=== PATIENT | male | born 1960 | race Caucasian/White ===

== ENCOUNTER 2016-07-27 16:51 | Emergency (ER) | payer OTHER ==
[~2016-07-27] VITALS: Ht 188 cm; Wt 117.3 kg
[2016-07-27 16:57] VITALS: BP 178/111; PULSE 83; RESP 18; O2SAT 96
[2016-07-27] MEDS ORDERED: 0.9% Sodium Chloride 1,000 ML IV ONE (19:12)
[2016-07-27] MEDS ORDERED: Dexamethasone 10 mg/mL Inj IVPUSH ONE (19:15)
[2016-07-27] MEDS ORDERED: MetoCLOpramide 5 mg/mL 2 mL Inj IVPUSH ONE (19:15)
--- NOTE | 2016-07-27 19:17 | ED.REPORT ---
HPI-Headache Date of Service July 27, 2016 ED Provider: Ever Chandler PA-C Sean is a 56-year-old male with history of hypertension, hyperlipidemia, asthma , vertigo and [place] presents with a chief complaint of headache. Patient states he has had a headache for approximately 2 weeks. He locates his headache on the right hemisphere and rates it 7-8 out of 10. His headache is aggravated by reclining, is worse at night and prevents sleep. Has been associated with right -sided jaw pain for the last 2 days. Patient states that the headache began relatively suddenly when he walked into his laundry room and smelled the detergent. Denies nausea/vomiting, photophobia, fever, chills, malaise or other symptoms. denies one-sided watery eyes, runny nose, facial sweating. He was seen by his primary care provider who suspects cluster headache. Prescribed sumatriptan and. Patient has found 2 tablets a sumatriptan helpful for the headache but has run out. Patient admits a history of multiple concussions but denies history of headaches Nursing Notes Stated Complaint: HEADACHE Chief Complaint: Headache Nursing Notes Reviewed: Yes Allergies: Uncoded Allergies: BREATHANE (Allergy, Severe, Anaphylaxis, 07/27/16) Scheduled Penicillin V Potassium (Penicillin V Potassium) 250 Mg Tablet 250 MG PO QID Scheduled PRN Metoclopramide (Metoclopramide) 10 Mg Tablet 10 MG PO QID PRN PRN Headache Sumatriptan Succinate (Sumatriptan Succinate) 100 Mg Tablet 100 MG PO DIRECTED PRN PRN Headache Take one tablet by mouth when necessary for headache. You can take 1 more tablet one hour later if headache has not resolved. Do not exceed 2 tablets per 24 hours General Time Seen by MD: 18:53 Chief Complaint Headache Sudden in Onset?: Yes Past Medical History Past Medical History Notes: Hypertension, hyperlipidemia, asthma, [place], vertigo Review of Systems General: Denies fever, chills, malaise. HEENT: Admits headache, denies congestion, sore throat Respiratory: Denies dyspnea, cough, shortness of breath, wheezing. Cardiovascular: Denies chest pain, palpitations. Gastrointestinal: Denies vomiting, diarrhea, abdominal pain. Genitourinary: Denies frequency, urgency, dysuria, hematuria. Otherwise as noted in HPI. Physical Exam General: Well appearing, well developed, well nourished, no acute distress. Head: Atraumatic, normocephalic. No mastoid tenderness. Nontender over temples. Eyes: No scleral icterus or injection. No discharge. PERRL. Vision grossly intact. Ears: Pinna and tragus nontender with manipulation. External auditory canal patent, atraumatic and without discharge. Tympanic membrane norton, shiny and translucent without fluid, bulging, retraction or perforation. Hearing grossly intact. Nose: Symmetrical, nares patent without discharge. No frontal or maxillary sinus tenderness. Mouth/pharynx: Several absent teeth, decayed and tender to percussion in the left lower molars. No redness, swelling, discharge or fluctuance noted. Mucus membranes moist. Tonsils 2+ and symmetrical, uvula midline. Pharynx noninjected , no cobblestoning or discharge. Voice clear. Neck: Supple. Spontaneous range of motion. No tenderness or lymphadenopathy. Trachea midline. Respiratory: Regular rate and rhythm. Breath sounds present, clear to auscultation and equal bilaterally. No respiratory distress. No increased work of breathing, speaks in complete sentences. Cardiovascular: Regular rate and rhythm, without murmur, gallop or rub. No pedal edema. Skin: Warm and dry. Neurological: Normal gait, heel-to-toe walk, toe walk, heel walk, Romberg. Negative pronator drift. Cranial nerves: Vision grossly intact, PERRL, EOMI. Facial motion symmetrical, sensation to light touch over forehead, maxilla and mandible present and equal B /L. Voice clear and fluent, no drooling/pooling of saliva, uvula rises midline. Psychological: Alert and oriented. Speech appropriate, linear and logical. Behavior appropriate. Initial Vital Signs Vital Signs (First) Date Time Temp Pulse Resp B/P Pulse Ox O2 Delivery O2 Flow Rate FiO2 07/27/16 16:57 36.6 83 18 178/111 96 Room Air Initial VS: Vital signs abnormal (elevated blood pressure) Interpretation & Diagnostics PROCEDURE: CT BRAIN WITHOUT CONTRAST ([id number]) INDICATIONS: headache IMPRESSION: No acute intracranial process Lab Results Interpretation Result Diagram: 07/27/16194307/27/161943 Test 07/27/16 19:44 07/27/16 20:14 White Blood Count 10.7th/mm3 (3.8-10.1) Red Blood Count 5.10mil/mm3 (4.40-5.80) Hemoglobin 15.9g/dL (13.8-17.2) Hematocrit 45.4% (41.0-50.0) Mean Corpuscular Volume 89.0fL (81-100) Mean Corpuscular Hemoglobin 31.2pg (27.0-35.0) Mean Corpuscular Hemoglobin Concent 35.0% (32.0-37.0) Red Cell Distribution Width 12.7% (12.3-15.4) Platelet Count 292bil/L (150-400) Neutrophils (%) (Auto) 58.8% (40-74) Lymphocytes (%) (Auto) 28.4% (14-46) Monocytes (%) (Auto) 7.8% (4-12) Eosinophils (%) (Auto) 4.4% (0-5) Basophils (%) (Auto) 0.4% (0-3) Erythrocyte Sedimentation Rate 1mm/hr (0-30) Sodium Level 139mEq/L (134-144) Potassium Level 3.8mEq/L (3.5-5.2) Chloride Level 98mEq/L (97-108) Carbon Dioxide Level 26mmol/L (18-29) Blood Urea Nitrogen 14mg/dL (6-24) Creatinine 1.22mg/dL (0.76-1.27) Estimat Glomerular Filtration Rate 66mL/min (>59) Glucose Level 100mg/dL (60-99) Calcium Level 9.0mg/dL (8.5-10.1) C-Reactive Protein 0.1mg/dL (0.0-0.5) Hold Boyle Top Tube Received (Received) Re-Eval/Medical Decision Med Decision/Clinical Course Otherwise healthy 56-year-old male presents with a chief complaint of headache which began relatively suddenly 2 weeks ago. Headache is waxing and waning over that time, worse reclining and at night. Proventil sleep. Assessed by his primary care provider and prescribed sumatriptan which is helpful but he has run out. Denies history of headaches. Also complains of jaw pain which began about 2 days ago. Physical examination is benign with a normal neurological examination. Patient appears quite well. I do note tenderness to percussion in the left lower molar , with no redness, swelling, discharge or fluctuance noted. CBC and CMP are unremarkable, revealing only extremely slight leukocytosis at 10.7. CRP and ESR are normal. CT scan is normal. Initial hypertension noted at triage is significantly reduced after treatment. Responds well to treatment with ketorolac, dexamethasone, metoclopramide, 1 L normal saline. States pain reduced from 6/10 to 2/10. At this point I am reassured regarding intracranial bleeding, tumor, meningitis. I think this is likely to be a migraine headache. Discussed these findings with the patient, and discussed performing a lumbar puncture for maxim confidence. Lumbar puncture is declined, and I made clear that he is welcome to return any time to receive the test. Patient wishes to be discharged and has plans to be seen by his primary care provider early next week. Advised regarding analgesia and prescribed descriptions for metoclopramide, some triptan and penicillin to address a potentially infected tooth. Advised emergent return precautions and seeking out a dentist as soon as possible. Patient verbalized understanding of and consent to the plan Re-Evaluation/Progress : Time of Eval: 20:52 Re-Evaluation/Progress Note: Patient reports his headache pain is reduced from 6/10 to 2/10 Discharge & Departure Impression: Primary Impression: Headache Headache type: unspecified Headache chronicity pattern: acute headache Intractability: not intractable Qualified Code: R51 - Headache Additional Impression: Elevated blood pressure reading Disposition: Home Discharge Condition All VS Reviewed: Yes Condition: Stable Patient Instructions: Acute Headache (GEN) Additional Instructions: Evaluation for a headache in the emergency department included history, physical examination blood tests and CT scan all of which are reassuring that the headache is unlikely to be caused by an immediately dangerous conditions such as bleeding or bran, tumor or infection. You have declined to have a lumbar puncture performed which would be the most definitive test. Your free to return to emergency department at any time and have this test performed. If your headache returns I suggest taking 25 mg of Benadryl, 400 mg ibuprofen and 10 mg of Reglan. I will write a prescription for the Reglan as well as a prescription for the sumatriptan they have been using. Uses sumatriptan and if the other medications fail. I will also write a prescription for penicillin to address the potential infection in your tooth. Make an effort to contact dentists who accept your insurance and be seen as soon as possible. Follow-up with your primary care provider early next week to further assess your headache. Return to emergency department for any new or worsening symptoms including new or different headache, increasing pain, vomiting that does not respond to medication or stroke symptoms. I also note that your blood pressure was elevated during your visit to the emergency department. Please discuss this with your primary care provider. Referrals: Dustin Ivy DO (PCP) EDSupervising Provider for APC: Callum Perez DO copies to: Dustin Ivy Seth PA-C July 27, 2016 19:17
[2016-07-27 20:00] LABS: BASOPHILS % (AUTO) 0.4 % (0-3); EOSINOPHILS % (AUTO) 4.4 % (0-5); MONOCYTES % (AUTO) 7.8 % (4-12); Mean Corpuscular Hemoglobin 31.2 pg (27.0-35.0); NEUTROPHILS % (AUTO) 58.8 % (40-74); Platelet Count 292 bil/L (150-400)
[2016-07-27 20:12] VITALS: BP 163/90; PULSE 64; RESP 16; O2SAT 100
--- NOTE | 2016-07-27 20:40 | DRSVH ---
PROCEDURE: CT BRAIN WITHOUT CONTRAST ([id number]) INDICATIONS: headache TECHNIQUE: Noncontrast 4.5 mm thick angled axial sections acquired from the foramen magnum to the vertex, with c oronal reformats. COMPARISON: None. FINDINGS: Image quality: Excellent. CSF spaces: Basal cisterns are patent. No extra-axial fluid collections. Ventricles are normal in size and shape. Brain: No midline shift. No intracranial masses or hemorrhage. Hurd-white matter interface is norm al. Skull and face: Calvarium and visualized facial bones are intact, without suspicious lesions. Sinuses: Visualized sinuses and mastoids are clear. IMPRESSION: No acute intracranial process Dictated by: Vito Luna M.D. on 07/27/2016 at 20:37 Approved by: Vito Luna M.D. on 07/27/2016 at 20:38
[2016-07-27 21:14] VITALS: BP 150/84; PULSE 65; RESP 16; O2SAT 97
[2016-07-27] MEDS ORDERED: METO10TA3 PO (21:42)
[2016-07-27] MEDS ORDERED: SUMA100T2 PO (21:42)
[2016-07-27] MEDS ORDERED: PENI250T2 PO (21:42)
[2016-07-27 22:14] VITALS: BP 155/99; PULSE 80; RESP 16; O2SAT 97
== END 2016-07-27 22:15 | disposition home or self-care (01) ==
LOC: SED 16:51
DX: R51 Headache (principal); I10 Essential (primary) hypertension; E78.5 Hyperlipidemia, unspecified; I25.2 Old myocardial infarction; J45.909 Unspecified asthma, uncomplicated
CPT/HCPCS: 36415; 70450; 80048; 85025; 85651; 86140; 96361; 96374; 96375; 99285; J1100; J1885; J2765; J7030

== ENCOUNTER 2016-11-01 11:39 | Emergency (ER) | payer OTHER ==
[~2016-11-01] VITALS: Ht 190.5 cm; Wt 121.5 kg
[~2016-11-01 11:39] MED LIST: METO10TA3 PO; PENI250T2 PO; SUMA100T2 PO
[2016-11-01 11:55] VITALS: BP 171/104; PULSE 65; RESP 18; O2SAT 97
--- NOTE | 2016-11-01 12:00 | ED.REPORT ---
HPI-Extremity Problem Upper Date of Service Nov 01, 2016 ED Provider: Dr. Abdul Pt is a 56 year old male with a hx of chronic right shoulder pain presenting to the ED complaining of right shoulder pain recently worsened after doing activities such as gardening and building a shed. Associated symptoms include intermittent numbness and tingling all down his arm to the R pinky finger. Denies any heavy lifting, recent injury, SOB, fever, chills, headache, or vision changes. He has an appointment with orthopedic surgery in 3 days but states that he cannot wait until then due to the severity of the pain. He was last seen at for the pain on the 10/03/16 and diagnosed with a right rotator cuff injury. He did not have any x rays done. He initially injured himself at work in 2012, and had a labrum surgery reattaching the bicep in 2014. He has been taking Aspirin for the pain without relief. Pain is relieved by sitting and lying down and worse with movement of his shoulder. Nursing Notes Stated Complaint: RT EXTREME SHOULDER PAIN Chief Complaint: Extremity Trauma Nursing Notes Reviewed: Yes Allergies: Uncoded Allergies: BREATHANE (Allergy, Severe, Anaphylaxis, 07/27/16) Scheduled Penicillin V Potassium (Penicillin V Potassium) 250 Mg Tablet 250 MG PO QID Scheduled PRN Hydrocodone-Acetaminophen 5-325 mg (Hydrocodone-Acetaminophen 5-325 mg) 1 Each Tablet 1 TABLET PO Q4H PRN PRN For Pain Metoclopramide (Metoclopramide) 10 Mg Tablet 10 MG PO QID PRN PRN Headache Sumatriptan Succinate (Sumatriptan Succinate) 100 Mg Tablet 100 MG PO DIRECTED PRN PRN Headache Take one tablet by mouth when necessary for headache. You can take 1 more tablet one hour later if headache has not resolved. Do not exceed 2 tablets per 24 hours General Time Seen by MD: 11:59 Chief Complaint Shoulder injury right Hx Obtained From: Patient Arrived By: Walk-in Onset Occurred: Just prior to arrival Symptom Duration: Since onset Location: : Shoulder right Quality: Painful Severity: Current: Severe Severity: Maximum: Severe Recent Healthcare: No recent hospitalization, Recent doctor visit Similar Sx Previous: Yes Past Medical History Past Medical History Notes: Hypertension, hyperlipidemia, asthma, [place], vertigo Past Medical History Chronic right shoulder pain Past Surgical History Labrum surgery reattaching the bicep in 2014 Smoking History Unknown if Ever Smoker Social History Other Social History: Good social support, Ambulatory Status Independent Review of Systems Constitutional: Denies: Chills, Fever Musculoskeletal: Reports: Extremity pain, Joint pain Neurologic: Reports: Numbness, Denies: Headache, Vision change Complete sys rev & neg: except as marked. Respiratory: Denies: Shortness of breath Physical Exam Initial Vital Signs Vital Signs (First) Date Time Temp Pulse Resp B/P Pulse Ox O2 Delivery O2 Flow Rate FiO2 11/01/16 11:55 36.7 65 18 171/104 97 Room Air Initial VS: Reviewed General/Constitutional: Well-developed, Well-nourished Head / Eyes: Atraumatic, Normocephalic, PERRL ENT: Mucous membranes moist, Conjunctiva normal, No scleral icterus Neck: Supple, Non-tender, Full range of motion Respiratory: No respiratory distress Abdomen / GI: No distention Skin: Warm, Dry, No cyanosis Neurologic: Alert, Oriented, Nonfocal Psychiatric: Mood/affect normal, Behavior normal, Normal thought content Upper Extremity / MS: No swelling, No erythema, No deformity, Neurologic intact , Vascular intact Discomfort with any ROM of right arm. Good radial pulse, good pulses into the fingertips. No focal tenderness or warmth. Interpretation & Diagnostics X-Ray Interpretation Xray Interpretation: IMPRESSION: No acute fractures or dislocations. Dictated by: Ton Diaz M.D. on 11/01/2016 at 13:05 X-Ray Ordered: Shoulder right Interpretation / Wet Read by: Interpret - Radiologist Re-Eval/Medical Decision Med Decision/Clinical Course Pt is a 56 year old male with a hx of chronic right shoulder pain presenting to the ED complaining of right shoulder pain recently worsened after doing activities such as gardening and building a shed. Associated symptoms include intermittent numbness and tingling all down his arm to the R pinky finger. Denies any heavy lifting, recent injury, SOB, fever, chills, headache, or vision changes. He has an appointment with orthopedic surgery in 3 days but states that he cannot wait until then due to the severity of the pain. He was last seen at for the pain on the 10/03/16 and diagnosed with a right rotator cuff injury. He did not have any x rays done. He initially injured himself at work in 2012, and had a labrum surgery reattaching the bicep in 2014. He has been taking Aspirin for the pain without relief. Pain is relieved by sitting and lying down and worse with movement of his shoulder. Here in the emergency department the patient is afebrile with stable vital signs and examination as above. Examination of the shoulder reveals no evidence of acute fracture or dislocation. It is no evidence of septic arthritis. He is neurovascularly intact. He reports intermittent numbness and tingling in his neurologic exam is completely normal with good strength and sensation in the emergency room today. Plain films obtained as below: No acute fractures or dislocations. Overall presentation most consistent with exacerbation of patient's underlying meniscal injury. He has an appointment with his orthopedic surgeon on Friday. I advised him to stop taking aspirin for pain. He will try ibuprofen, ice packs and he has been provided with a limited supply of Pope. Prior to discharge follow-up and return precautions were reviewed in detail with the patient who verbalized understanding and agreement with the plan. The patient was discharged in stable condition. Re-Evaluation/Progress : Time of Eval: 12:09 Patient Status: Condition improved Re-Evaluation/Progress Note: Discussed plan for x ray and discharge. Counseled Regarding: Diagnosis, Lab results, Need for follow-up, When/why to return to ED Discharge & Departure Impression: Primary Impression: Right shoulder pain Chronicity: acute Qualified Code: M25.511 - Pain in right shoulder Additional Impression: Tear of right meniscus as current injury Encounter type: initial encounter Qualified Code: S83.206A - Unspecified tear of unspecified meniscus, current injury, right knee, initial encounter Disposition: Home Discharge Condition All VS Reviewed: Yes Condition: Improved Additional Instructions: Thank you for seeking care at the emergency room. Our primary goal today in the ED was to evaluate you for any life-threatening conditions. Your evaluation was reassuring. You will be discharged with a prescription for Vicodin. Take this as prescribed for your shoulder pain. You should follow-up with the orthopedic surgeon as scheduled. You should return to the ED immediately if you develop fevers, vomiting, cough, shortness of breath, chest pain, lightheadedness, weakness or any other concerning signs or symptoms. Thank you for letting us partake in your care today. Narcotic Pain Medicine You have been prescribed a narcotic for pain relief. These drugs are usually combined with acetaminophen (Tylenol#3, Percocet, Darvocet, Anexsia, Vicodin) or aspirin (Empirin#3, Percodan, Synalogs-DC) for increased effect. Narcotics act on the central nervous system to reduce pain; they also impair mental alertness and physical abilities. We advise you not to drink alcohol, drive a car, or operate dangerous equipment when you are taking these drugs. You can lessen stomach irritation from your medicine by taking it with meals or a full glass of water. Common side effects of narcotics are: Nausea and vomiting , heartburn, constipation, dizziness, sleepiness, and mood changes. If you have bothersome side effects or symptoms of an allergic reaction (itching, hives, rash), stop taking your medicine and call your doctor or the emergency room right away. Please keep your narcotic medicine well out of the reach of children. Referrals: [facility] Scribe Attestation Portions of this note were transcribed by Jessica Wooten. I, Dr. Abdul personally performed the history, physical exam and medical decision-making; I reviewed and confirmed the accuracy of the information in the transcribed note. Signed by: Akbar Traore, 11/01/2016. copies to: [facility] Davidson Abdul MD Nov 01, 2016 12:00 JESSICA WOOTEN Nov 01, 2016 12:08
[2016-11-01] MEDS ORDERED: HYDR-4003 PO (12:11)
--- NOTE | 2016-11-01 13:16 | DRSVH ---
PROCEDURE: X-RAY RIGHT SHOULDER, MINIMUM TWO VIEWS ([id number]) INDICATIONS: pain TECHNIQUE: 3 views of the shoulder were acquired. COMPARISON: None. FINDINGS: Bones: No fractures or dislocations. No suspicious bony lesions. Visualized ribs appear intact. M ild glenohumeral and acromioclavicular joint degenerative change. Proximal right humeral post surgica l changes. Soft tissues: No suspicious soft tissue calcifications. IMPRESSION: No acute fractures or dislocations. Dictated by: Ton Diaz M.D. on 11/01/2016 at 13:05 Approved by: Ton Diaz M.D. on 11/01/2016 at 13:15
[2016-11-01 13:44] VITALS: BP 144/87; PULSE 69; RESP 16; O2SAT 99
[2016-11-01 13:45] VITALS: BP 144/87; PULSE 69; RESP 16; O2SAT 99
== END 2016-11-01 13:45 | disposition home or self-care (01) ==
LOC: SED 11:39
DX: S83.203A Other tear of unspecified meniscus, current injury, right knee, initial encounter (principal); X50.9XXA Other and unspecified overexertion or strenuous movements or postures, initial encounter; Y93.H2 Activity, gardening and landscaping; Y92.9 Unspecified place or not applicable; Y99.8 Other external cause status; I10 Essential (primary) hypertension; J45.909 Unspecified asthma, uncomplicated; E78.5 Hyperlipidemia, unspecified; G89.29 Other chronic pain; M25.511 Pain in right shoulder